=== PATIENT | male | born 1990 | race Caucasian/White ===

== ENCOUNTER 2016-11-28 11:09 | Emergency (ER) | payer OTHER ==
[~2016-11-28] VITALS: Ht 177.8 cm; Wt 78.0 kg
[2016-11-28 11:13] VITALS: BP 128/76; PULSE 73; TEMP 36.7; O2SAT 99; Ht 177.8 cm; Wt 78.0 kg
--- NOTE | 2016-11-29 06:38 | EMERGENCY ROOM VISIT NOTE ---
ED Visit Note First contact with patient: 11:27 Chief Complaint: I'm having swelling and lumps on my chin. History of Present Illness: Mr. Sim is a 26-year-old white male who ambulates into the ED planing of swelling and skin eruptions on the inferior surface of his mandible that started approximately 2 days ago. Patient reports he was feeling his chin 2 days ago and started noticing some small lumps that were nonpainful. Then yesterday they started getting slightly erythematous and did become tender. He denies any previous similar skin eruptions. He is concerned about possible insect bites. Currently he describes his discomfort as a mild pressure sensation in this area. He rates his discomfort 2/10. The pain is nonradiating. The pain worsens with palpation. He has not taken any medications for this discomfort prior to arrival at the hospital. He denies any associated symptoms including other skin eruptions of, other skin color changes, fevers, chills, sweats, upper respiratory tract symptoms, recent trauma to this area, throat pain, voice changes, difficulty swallowing, cough, shortness of breath, abdominal pain , nausea, vomiting. Review of Systems: As noted above in history of present illness. 8 body systems were reviewed and found to be negative as noted above. Past Medical History: Seborrhea dermatitis, ureteral stent. Current Medications: Patient denies. Allergies to Medications: Patient denies. Social History: Patient is currently employed; he lives with his fiance and feels safe in his home environment; he admits to tobacco and alcohol use. Physical Examination: Vital Signs: Date Time Temp Pulse Resp B/P (MAP) Pulse Ox O2 Delivery O2 Flow Rate FiO2 11/28/16 11:13 36.7 73 16 128/76 99 Room Air GENERAL: 26-year-old male in no acute distress, nontoxic-appearing, afebrile and hemodynamically stable. NEUROLOGICAL: Awake, alert and oriented to person, place and time. Answering questions appropriately and following commands. SKIN: Warm, dry and pink. Face: Over the inferior aspect of the chin patient has 5-6 small inflamed hair follicles. There is local mild erythema. There are a few small dots of pus within each of these lesions. There is no lymphangitis or signs of cellulitis. HEENT: Atraumatic and normocephalic. Sclera white and conjunctiva pink. No drainage from naris. Oral cavity moist and pink. Airway is patent. No signs of involvement of the mouth or oral cavity. Pharynx is nonerythematous or edematous. Speech normal. No lymphadenopathy. Trachea midline. No jugular venous distention. ED Course: Patient is assessed as noted above. Patient's medication list was reviewed. Patient was educated about today's findings and instructed on his treatment plan ; he verbalizes understanding and agreement with this plan. Clinical Impression: Folliculitis. Decision-Making: My differential diagnosis I considered hives, cellulitis, lymphadenopathy and other causes. Disposition: Patient discharged home in stable condition; prior to departure he was reassessed and subjectively reported he was feeling the same. Plan: Patient was encouraged to wash this area with chlorhexidine twice a day for 2 weeks. Patient was encouraged after washing does put a small amount of antibiotic ointment on the area. Patient was encouraged use ibuprofen or acetaminophen as needed for pain. Patient was encouraged to avoid shaving this area until resolution of rash. Patient was encouraged to follow-up with family physician for recheck. Patient was encouraged to return to the ED for spreading folliculitis, increasing pus like drainage, fevers, red streaking or any new/concerning symptoms.
== END 2016-11-28 11:52 | disposition home or self-care (01) ==
LOC: C.EDB 11:12 → C.EDD 11:52
DX: L73.9 Follicular disorder, unspecified (principal); Z72.0 Tobacco use